=== PATIENT | male | born 1950 | race African-American/Black ===

== ENCOUNTER 2021-09-11 21:28 | Emergency (ER) | payer MEDICARE ==
[~2021-09-11] VITALS: Ht 185.4 cm; Wt 86.0 kg
[2021-09-11 22:42] LABS: CLARITY URINE CLEAR (CLEAR); COLOR URINE YELLOW (YELLOW); KETONES URINE NEGATIVE (NEGATIVE); LEUKOCYTE ESTERASE URINE NEGATIVE (NEGATIVE); NITRITE URINE NEGATIVE (NEGATIVE); OCCULT BLOOD URINE NEGATIVE (NEGATIVE); PROTEIN URINE NEGATIVE (NEGATIVE); SPECIFIC GRAVITY URINE 1.031 (1.005-1.030)
[2021-09-11 22:53] LABS: *AMPHETAMINES SCREEN URINE NEGATIVE (NEGATIVE); *BARBITURATES SCREEN URINE NEGATIVE (NEGATIVE); *BENZODIAZEPINES SCREEN URINE NEGATIVE (NEGATIVE); CANNABINOID URINE SCREEN NEGATIVE (NEGATIVE); METHADONE URINE SCREEN NEGATIVE (NEGATIVE); OPIATES URINE SCREEN NEGATIVE (NEGATIVE)
[2021-09-11 22:54] LABS: *COCAINE SCREEN URINE PRESUMTIVE POSITIVE (NEGATIVE); PHENCYCLIDINE URINE SCREEN NEGATIVE (NEGATIVE)
[2021-09-11 23:16] LABS: BASOPHILS % 0.9 % (0.0-2.0); EOSINOPHILS % 11.1 % (0.0-5.0); HEMATOCRIT. 48.5 % (42.0-52.0); HEMOGLOBIN. 16.1 g/dL (14.0-18.0); LYMPHOCYTES % 16.9 % (20.0-50.0); MEAN CORPUSCULAR HEMOGLOBIN 27.8 pg (28.0-32.0); MEAN CORPUSCULAR VOLUME 83.5 fL (80.0-94.0); MEAN PLATELET VOLUME 9.2 fl (7.4-10.4); MONOCYTES % 7.8 % (2.0-8.0); NEUTROPHILS % 63.3 % (40.0-76.0); PLATELET 172 x1000/uL (130-400); RED CELL DISTRIBUTION WIDTH 14.4 % (11.6-14.6)
[2021-09-11 23:23] LABS: CHLORIDE 112 mEq/L (98-107)
[2021-09-11] MEDS ORDERED: IOHEXOL-350 100 ML BOTTLE ONE (23:25)
[2021-09-11 23:29] LABS: ETHANOL BLOOD < 10 mg/dL
[2021-09-11 23:31] LABS: LDL CHOLESTEROL 91 mg/dL (5-100)
[2021-09-12 01:07] VITALS: BP 154/76
[2021-09-13] MEDS ORDERED: MIRT45TA83 PO (02:00)
[2021-09-13] MEDS ORDERED: UMEC62.5 IH (02:00)
[2021-09-13] MEDS ORDERED: INSU100I24 SUBCUT (02:00)
[2021-09-13] MEDS ORDERED: GLYC10.7 IH (02:00)
[2021-09-13] MEDS ORDERED: METF750T46 PO (02:00)
[2021-09-13] MEDS ORDERED: TRAZ-252 PO (02:00)
[2021-09-13] MEDS ORDERED: ATOR20TA65 PO (02:00)
[2021-09-13] MEDS ORDERED: ALBU6.7H9 (02:00)
[2021-09-13] MEDS ORDERED: LISI10TA26 PO (02:00)
== END 2021-09-12 01:13 | disposition left against medical advice (07) ==
LOC: ER 21:28 → CANBEDREQ 09-12 02:42
DX: I63.9 Cerebral infarction, unspecified (principal); E11.9 Type 2 diabetes mellitus without complications; I10 Essential (primary) hypertension
CPT/HCPCS: 36415; 70450; 70496; 70498; 71045; 80053; 80305; 80320; 81003; 83721; 84484; 85025; 93005; 99291; Q9967; G0480

== ENCOUNTER 2022-07-04 07:50 | Inpatient (IN) | payer MEDICARE, MEDICAID ==
[~2022-07-04] VITALS: Ht 185.4 cm; Wt 96.2 kg
[~2022-07-04 07:50] MED LIST: ALBU6.7H3; ATOR20TA65 PO; GLYC10.7 IH; INSU100I24 SUBCUT; LISI10TA26 PO; METF750T46 PO; MIRT45TA83 PO; TRAZ-252 PO; UMEC62.5 IH
[2022-07-04 09:26] LABS: CHLORIDE 109 mEq/L (98-107)
[2022-07-04 09:26] LABS: CLARITY URINE CLEAR (CLEAR); COLOR URINE YELLOW (YELLOW); KETONES URINE NEGATIVE (NEGATIVE); LEUKOCYTE ESTERASE URINE NEGATIVE (NEGATIVE); NITRITE URINE NEGATIVE (NEGATIVE); OCCULT BLOOD URINE NEGATIVE (NEGATIVE); PH URINE 5.5 (4.5-8.0); PROTEIN URINE NEGATIVE (NEGATIVE); SPECIFIC GRAVITY URINE 1.019 (1.005-1.030); UROBILINOGEN URINE 0.2 E.U./dL (0.2-1.0)
[2022-07-04 09:31] LABS: BASOPHILS % 2.5 % (0.0-2.0); EOSINOPHILS % 10.4 % (0.0-5.0); HEMATOCRIT. 48.5 % (42.0-52.0); HEMOGLOBIN. 15.8 g/dL (14.0-18.0); MEAN CORPUSCULAR HEMOGLOBIN 27.4 pg (28.0-32.0); MEAN CORPUSCULAR VOLUME 83.8 fL (80.0-94.0); MEAN PLATELET VOLUME 9.6 fl (7.4-10.4); MONOCYTES % 8.9 % (2.0-8.0); NEUTROPHILS % 58.2 % (40.0-76.0); PLATELET 181 x1000/uL (130-400); RED BLOOD CELL COUNT 5.78 mill/uL (4.7-6.1)
[2022-07-04] MEDS ORDERED: VANCOMYCIN 1G PREMIX 200 ML IV NR (09:45)
[2022-07-04] MEDS ORDERED: PIPERACILLIN/TAZ 3.375G PREMIX 50 ML IV NR (09:45)
[2022-07-04] MEDS ORDERED: SODIUM CHLORIDE 0.9% 1,000 ML IV ONE (09:45)
[2022-07-04] MEDS ORDERED: INSULIN REGULAR (HUMULIN R) 300UNITS/3ML VIAL SUBCUT NR (09:45)
[2022-07-04] MEDS ORDERED: ONDANSETRON HCL 4MG/2ML INJ IV PRN (14:15)
[2022-07-04] MEDS ORDERED: NA PHOS,M-B/NA PHOS,DI-BA ENEMA 118ML PR PRN (14:15)
[2022-07-04] MEDS ORDERED: NITROGLYCERIN 0.4MG TABLET SL SL PRN (14:15)
[2022-07-04] MEDS ORDERED: IPRATROPIUM/ALBUTEROL 0.5-3(2.5)MG/3ML NEB NEB PRN (14:15)
[2022-07-04] MEDS ORDERED: DEXTROSE 50% WATER 50ML SYRINGE IV PRN (14:15)
[2022-07-04] MEDS ORDERED: ACETAMINOPHEN 325MG TABLET PO PRN ×2 (14:15)
[2022-07-04] MEDS ORDERED: GUAIFENESIN 200MG/10ML SUGAR FREE UDC PO PRN (14:15)
[2022-07-04] MEDS ORDERED: MAGNESIUM/ALUMINUM HYDROXIDE/SIMETHICONE 30ML UDC PO PRN (14:15)
[2022-07-04] MEDS ORDERED: KETOROLAC 15MG/ML VIAL IV PRN (14:15)
[2022-07-04 15:23] VITALS: BP 154/83
[2022-07-04 16:00] VITALS: BP 145/88
[2022-07-04] MEDS ORDERED: CEFTRIAXONE 1 G PREMIX 50 ML IV SCH (16:30)
[2022-07-04 16:56] LABS: ETHANOL BLOOD < 10 mg/dL; HDL CHOLESTEROL 30 mg/dL (40-59); LDL CHOLESTEROL 102 mg/dL (5-100); T4 FREE 0.89 ng/dL (0.76-1.46); TOTAL IRON BINDING CAPACITY 288 ug/dL (250-450)
[2022-07-04 17:22] LABS: VITAMIN B12 SERUM 607 pg/mL (211-911)
[2022-07-04] MEDS: BLOOD SUGAR DIAGNOSTIC STRIP TEST SCH ×2 (17:39→21:06)
[2022-07-04] MEDS: INSULIN LISPRO 100 UNITS/ML SUBCUT SCH ×2 (17:39→21:08)
[2022-07-04] MEDS: CEFTRIAXONE 1,000 MG in DEXTROSE 5% WATER 50 ML IV SCH (17:44)
[2022-07-04] MEDS ORDERED: INSULIN LISPRO 100 UNITS/ML SUBCUT SCH (18:20)
[2022-07-04 20:00] VITALS: BP 132/73
[2022-07-04] MEDS: FAMOTIDINE 20MG TABLET PO SCH (21:05)
[2022-07-04] MEDS: ENOXAPARIN 30MG/0.3ML SYR SUBCUT SCH (21:06)
[2022-07-04] MEDS: INSULIN GLARGINE 100 UNITS/ML SUBCUT SCH (21:07)
[2022-07-04 23:26] LABS: *AMPHETAMINES SCREEN URINE NEGATIVE (NEGATIVE); *BARBITURATES SCREEN URINE NEGATIVE (NEGATIVE); *BENZODIAZEPINES SCREEN URINE NEGATIVE (NEGATIVE); *COCAINE SCREEN URINE PRESUMTIVE POSITIVE (NEGATIVE); CANNABINOID URINE SCREEN NEGATIVE (NEGATIVE); METHADONE URINE SCREEN NEGATIVE (NEGATIVE); OPIATES URINE SCREEN NEGATIVE (NEGATIVE); PHENCYCLIDINE URINE SCREEN NEGATIVE (NEGATIVE)
[2022-07-05] VITALS: BP 143/84
[2022-07-05 00:27] LABS: CREATINE KINASE MB FRACTION 2.4 ng/mL (0.5-3.6)
[2022-07-05] MEDS: ZOLPIDEM TARTRATE 5MG TABLET PO PRN (03:15)
[2022-07-05 04:00] VITALS: BP 142/92
[2022-07-05] MEDS: INSULIN LISPRO 100 UNITS/ML SUBCUT SCH ×4 (05:49→20:56)
[2022-07-05] MEDS: BLOOD SUGAR DIAGNOSTIC STRIP TEST SCH ×4 (05:49→20:57)
[2022-07-05 07:32] LABS: BASOPHILS % 1.3 % (0.0-2.0); EOSINOPHILS % 11.1 % (0.0-5.0); HEMATOCRIT. 50.6 % (42.0-52.0); HEMOGLOBIN. 16.6 g/dL (14.0-18.0); LYMPHOCYTES % 21.7 % (20.0-50.0); MEAN CORPUSCULAR HEMOGLOBIN 27.6 pg (28.0-32.0); MEAN CORPUSCULAR VOLUME 84.1 fL (80.0-94.0); MONOCYTES % 7.6 % (2.0-8.0); NEUTROPHILS % 58.3 % (40.0-76.0); RED BLOOD CELL COUNT 6.02 mill/uL (4.7-6.1)
[2022-07-05 07:51] LABS: CHLORIDE 108 mEq/L (98-107)
[2022-07-05 07:57] LABS: CREATINE KINASE MB FRACTION 2.2 ng/mL (0.5-3.6)
[2022-07-05 08:01] LABS: PHOSPHORUS 3.3 mg/dL (2.5-4.9)
[2022-07-05] MEDS ORDERED: ASPIRIN 325MG EC TABLET PO SCH (09:00)
[2022-07-05] MEDS: FAMOTIDINE 20MG TABLET PO SCH ×2 (09:02→20:57)
[2022-07-05] MEDS: ENOXAPARIN 30MG/0.3ML SYR SUBCUT SCH ×2 (09:02→20:57)
[2022-07-05] MEDS: CLOPIDOGREL 75MG TABLET PO SCH (11:30)
[2022-07-05 12:00] VITALS: BP 153/92
[2022-07-05] MEDS: INSULIN GLARGINE 100 UNITS/ML SUBCUT SCH (13:09)
[2022-07-05 16:00] VITALS: BP 144/88
[2022-07-05] MEDS: CEFTRIAXONE 1,000 MG in DEXTROSE 5% WATER 50 ML IV SCH (18:30)
[2022-07-05 20:23] VITALS: BP 171/96
[2022-07-05] MEDS: CLONIDINE 0.1MG TABLET PO PRN (20:57)
[2022-07-05] MEDS ORDERED: ATORVASTATIN CALCIUM 10MG TABLET PO SCH (21:00)
[2022-07-06] VITALS (7 sets, daily range): BP systolic 118–169; BP diastolic 74–99
[2022-07-06] MEDS: BLOOD SUGAR DIAGNOSTIC STRIP TEST SCH ×4 (05:56→20:43)
[2022-07-06] MEDS: INSULIN LISPRO 100 UNITS/ML SUBCUT SCH ×4 (06:03→21:10)
[2022-07-06] MEDS: ENOXAPARIN 30MG/0.3ML SYR SUBCUT SCH ×2 (08:37→21:08)
[2022-07-06] MEDS: FAMOTIDINE 20MG TABLET PO SCH ×2 (08:37→21:08)
[2022-07-06] MEDS: CLOPIDOGREL 75MG TABLET PO SCH (08:37)
[2022-07-06] MEDS: CLONIDINE 0.1MG TABLET PO PRN (11:41)
[2022-07-06] MEDS ORDERED: LORAZEPAM 1MG TABLET PO SCH (12:15)
[2022-07-06] MEDS ORDERED: CLOPIDOGREL 75MG TABLET PO SCH (12:15)
[2022-07-06] MEDS: ASPIRIN 81MG TABLET PO SCH (12:57)
[2022-07-06] MEDS ORDERED: IOHEXOL-350 100 ML BOTTLE ONE (15:10)
[2022-07-06] MEDS: CEFTRIAXONE 1,000 MG in DEXTROSE 5% WATER 50 ML IV SCH (17:42)
[2022-07-06] MEDS: ATORVASTATIN CALCIUM 40MG TABLET PO SCH (21:08)
[2022-07-06] MEDS: INSULIN GLARGINE 100 UNITS/ML SUBCUT SCH (21:09)
[2022-07-06] MEDS: ZOLPIDEM TARTRATE 5MG TABLET PO PRN (22:55)
[2022-07-07 04:00] VITALS: BP 133/82
[2022-07-07] MEDS: INSULIN LISPRO 100 UNITS/ML SUBCUT SCH ×4 (05:52→21:30)
[2022-07-07] MEDS: BLOOD SUGAR DIAGNOSTIC STRIP TEST SCH ×4 (05:52→21:30)
[2022-07-07 08:05] VITALS: BP 151/91
[2022-07-07] MEDS: ASPIRIN 81MG TABLET PO SCH (09:54)
[2022-07-07] MEDS: CLOPIDOGREL 75MG TABLET PO SCH (09:54)
[2022-07-07] MEDS: FAMOTIDINE 20MG TABLET PO SCH ×2 (09:54→21:30)
[2022-07-07] MEDS: ENOXAPARIN 30MG/0.3ML SYR SUBCUT SCH ×2 (09:56→21:28)
[2022-07-07 12:00] VITALS: BP 154/81
[2022-07-07] MEDS: DOCUSATE SODIUM 100MG CAPSULE PO PRN (13:21)
[2022-07-07 16:00] VITALS: BP 129/83
[2022-07-07] MEDS: CEFTRIAXONE 1,000 MG in DEXTROSE 5% WATER 50 ML IV SCH (18:35)
[2022-07-07 21:00] VITALS: BP 135/93
[2022-07-07] MEDS: INSULIN GLARGINE 100 UNITS/ML SUBCUT SCH (21:29)
[2022-07-07] MEDS: ATORVASTATIN CALCIUM 40MG TABLET PO SCH (21:30)
[2022-07-08] VITALS (7 sets, daily range): BP systolic 99–161; BP diastolic 53–97
[2022-07-08] MEDS: BLOOD SUGAR DIAGNOSTIC STRIP TEST SCH ×4 (07:17→20:27)
[2022-07-08] MEDS: INSULIN LISPRO 100 UNITS/ML SUBCUT SCH ×4 (07:18→21:03)
[2022-07-08] MEDS: ENOXAPARIN 30MG/0.3ML SYR SUBCUT SCH (08:50)
[2022-07-08] MEDS: DOCUSATE SODIUM 100MG CAPSULE PO PRN (08:50)
[2022-07-08] MEDS: ASPIRIN 81MG TABLET PO SCH (08:50)
[2022-07-08] MEDS: CLOPIDOGREL 75MG TABLET PO SCH (08:50)
[2022-07-08] MEDS: CLONIDINE 0.1MG TABLET PO PRN (08:50)
[2022-07-08] MEDS: FAMOTIDINE 20MG TABLET PO SCH ×2 (08:50→21:02)
[2022-07-08] MEDS: CEFTRIAXONE 1,000 MG in DEXTROSE 5% WATER 50 ML IV SCH (19:28)
[2022-07-08] MEDS: ATORVASTATIN CALCIUM 40MG TABLET PO SCH (21:02)
[2022-07-08] MEDS: INSULIN GLARGINE 100 UNITS/ML SUBCUT SCH (21:03)
[2022-07-09] MEDS ORDERED: ENOXAPARIN 40MG/0.4ML SYR SUBCUT SCH (09:00)
[2022-07-13] MEDS ORDERED: LINA5TAB PO (09:40)
[2022-07-13] MEDS ORDERED: ATOR20TA65 PO (09:40)
[2022-07-13] MEDS ORDERED: FAMO20TA8 PO (09:40)
[2022-07-13] MEDS ORDERED: LOSA100T3 PO (09:40)
[2022-07-13] MEDS ORDERED: CLOP75TA15 PO (09:40)
== END 2022-07-08 21:10 | DRG 871 ==
LOC: ER 07:50 → 8WST 11:27 → EDBEDREQTM 11:38 → EDBEDREQ 11:38 → EDBEDREQSVC 11:38 → ENRESERV 13:57 → SUPCPDRO 13:59 → 8WST 07-07 06:34
PROVIDERS: ADMIT Internal Medicine; ATTEND Internal Medicine
DX: A41.9 Sepsis, unspecified organism (principal); G92.8 Other toxic encephalopathy; I63.81 Other cerebral infarction due to occlusion or stenosis of small artery; I65.21 Occlusion and stenosis of right carotid artery; E11.65 Type 2 diabetes mellitus with hyperglycemia; E78.00 Pure hypercholesterolemia, unspecified; F14.10 Cocaine abuse, uncomplicated; F17.210 Nicotine dependence, cigarettes, uncomplicated; H54.62 Unqualified visual loss, left eye, normal vision right eye; R26.9 Unspecified abnormalities of gait and mobility; E11.42 Type 2 diabetes mellitus with diabetic polyneuropathy; I10 Essential (primary) hypertension; Z86.73 Personal history of transient ischemic attack (TIA), and cerebral infarction without residual deficits; Z82.49 Family history of ischemic heart disease and other diseases of the circulatory system; Z91.14 Patient's other noncompliance with medication regimen; Z83.3 Family history of diabetes mellitus; W18.30XA Fall on same level, unspecified, initial encounter; Y93.89 Activity, other specified; Y92.89 Other specified places as the place of occurrence of the external cause; Y99.8 Other external cause status
CPT/HCPCS: 36415; 70496; 70498; 70551; 71045; 80053; 80061; 80305; 80320; 81003; 82550; 82553; 82607; 82746; 82962; 83036; 83540; 83550; 83605; 83735; 84100; 84145; 84439; 84443; 84484; 85025; 93306; 93880; 93970; 97116; 97162; 97166; 97530; 99291; J0696; J1650; J1815; J2543; J3370; J7060; Q9967; G0480

== ENCOUNTER 2023-05-20 19:14 | Emergency (ER) | payer MEDICARE, MEDICAID ==
[~2023-05-20] VITALS: Ht 182.9 cm; Wt 97.1 kg
[~2023-05-20 19:14] MED LIST changes: +CLOP75TA15 PO; +FAMO20TA8 PO; -GLYC10.7 IH; +LINA5TAB PO; -LISI10TA26 PO; +LOSA100T4 PO; -MIRT45TA83 PO; -TRAZ-252 PO; -UMEC62.5 IH
[2023-05-20 19:26] VITALS: BP 142/84; RESP 16; TEMP 98.4; O2SAT 100
[2023-05-20 19:29] VITALS: PULSE 96
== END 2023-05-20 21:46 | disposition left against medical advice (07) ==
LOC: ER 19:14
DX: Z53.21 Procedure and treatment not carried out due to patient leaving prior to being seen by health care provider (principal)
CPT/HCPCS: 99281